=== PATIENT | male | born 1970 | race Native Hawaiian/Other Pacific Islander ===

== ENCOUNTER 2022-11-25 01:18 | Observation (INO) | payer MEDICAID ==
[~2022-11-25] VITALS: Ht 175.3 cm; Wt 86.2 kg
[2022-11-25 01:37] LABS: BASOPHILS ABSOLUTE AUTO 0.03 K/mm3 (0.00-0.23); BASOPHILS PERCENT AUTO 0 % (0-2); EOSINOPHILS ABSOLUTE AUTO 0.35 K/mm3 (0.00-0.68); EOSINOPHILS PERCENT AUTO 4 % (0-6); Hematocrit 39.1 % (37.0-53.0); Hemoglobin 13.7 g/dL (13.5-17.5); IMMATURE GRAN ABSOLUTE AUTO 0.02 K/mm3 (0.00-0.10); IMMATURE GRAN PERCENT AUTO 0 % (0-1); LYMPHOCYTES ABSOLUTE AUTO 3.78 K/mm3 (0.84-5.20); LYMPHOCYTES PERCENT AUTO 42 % (21-46); MONOCYTES PERCENT AUTO 6 % (4-13); Mean Corpuscular HGB 29.1 pg (26.0-34.0); Mean Corpuscular Volume 83 fL (80-100); Mean Platelet Volume 10.4 fL (9.1-12.4); NEUTROPHILS ABSOLUTE AUTO 4.33 K/mm3 (1.96-9.15); NEUTROPHILS PERCENT AUTO 48 % (41-73); Platelet Count 291 K/mm3 (150-400); RDW Standard Deviation 42.4 fL (35.1-46.3); Red Blood Cell Count 4.71 M/mm3 (4.30-5.90); White Blood Cell Count 9.01 K/mm3 (4.00-11.30)
[2022-11-25] MEDS ORDERED: AMOX-CLAV 500-1 EAC5 (01:41)
[2022-11-25] MEDS ORDERED: RANEXA1000 M4 PO (01:42)
[2022-11-25] MEDS ORDERED: OXYC5 PO (01:42)
[2022-11-25] MEDS ORDERED: NITR.4SL SL (01:42)
[2022-11-25] MEDS ORDERED: METO100 (01:43)
[2022-11-25] MEDS ORDERED: ISOMON20 (01:43)
[2022-11-25 01:56] LABS: Bilirubin, Total 0.2 mg/dL (0.1-1.0); Bun/Creatinine Ratio 19.6 (12.0-20.0); Calcium, Blood 9.2 mg/dL (8.5-10.1); Creatinine, Blood 0.82 mg/dL (0.60-1.20); Globulin, Blood 4.1 g/dL (2.2-4.0); Potassium, Blood 4.1 mmol/L (3.5-5.5); Total Protein, Blood 8.1 g/dL (6.4-8.2)
[2022-11-25] MEDS ORDERED: METO25 PO (05:20)
[2022-11-25] MEDS ORDERED: Lisinopril2.5 MG PO (05:21)
[2022-11-25] MEDS ORDERED: Isosorbide Mono30 MG (05:22)
[2022-11-25] MEDS ORDERED: Isosorbide Mono30 MG PO (05:22)
[2022-11-25] MEDS ORDERED: ATOR80 PO (05:23)
[2022-11-25] MEDS ORDERED: CLOP75 PO (05:24)
[2022-11-25] MEDS ORDERED: TERB250 PO (05:24)
[2022-11-25] MEDS ORDERED: Norco 7.5-3251 EACH PO (05:26)
[2022-11-25 06:05] VITALS: BP 134/93
[2022-11-25 07:23] VITALS: BP 129/97
[2022-11-25 15:12] VITALS: BP 139/96
[2022-11-25] MEDS ORDERED: ASPI81CH PO (18:52)
[2022-11-25] MEDS ORDERED: PANT40 PO (18:53)
--- NOTE | 2022-11-25 19:09 | NUR ---
PATIENT D/C'D TO HOME. DC INSTRUCTIONS AND EDUCATIO DISCUSSED WITH PATIENT AND COPY PROVIDED. PATIENT FROM OUT OF TOWN AND WILL CALL PCP AND RAILROAD ENGINEER WHEN BACK HOME. RX MEDICATIONS FAXED TO [facility] IN [place]. DENIES ANY FURTHER QUESTIONS OR CONCERNS.
== END 2022-11-25 19:05 | disposition home or self-care (01) ==
LOC: ER 01:18 → MEDS 01:19
PROVIDERS: Student in an Organized Health Care Education/Training Program; ADMIT Internal Medicine
DX: R07.9 Chest pain, unspecified (principal); I25.10 Atherosclerotic heart disease of native coronary artery without angina pectoris; K04.7 Periapical abscess without sinus; F10.129 Alcohol abuse with intoxication, unspecified; I25.2 Old myocardial infarction; Z79.899 Other long term (current) drug therapy; Z87.891 Personal history of nicotine dependence; Z95.5 Presence of coronary angioplasty implant and graft; R19.5 Other fecal abnormalities
CPT/HCPCS: 36415; 71046; 78452; 80053; 84484; 85025; 93005; 93010; 96372; 96374; 96375; 96376; 99285-25; A9270; A9500; G0378; G0480; J0706; J1644; J2270; J2405; J2785